=== PATIENT | male | born 1955 | race African-American/Black ===

== ENCOUNTER 2017-08-24 21:40 | Emergency (ER) | payer OTHER ==
[~2017-08-24] VITALS: Ht 170.2 cm; Wt 63.5 kg
[~2017-08-24 21:40] MED LIST: ATARAX25 MG ORAL; BUPROPION XL300 MG ORAL; IBUPROFEN600 MG ORAL; PRILOSEC10 MG ORAL; PROZAC20 MG ORAL; THORAZINE25 MG PO
[2017-08-24 22:19] VITALS: BP 113/78
[2017-08-24] MEDS ORDERED: IBUPROFEN600 MG ORAL (23:04)
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
[2017-08-24 23:10] VITALS: BP 113/78
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
== END 2017-08-24 23:10 | disposition home or self-care (01) ==
LOC: EMR 22:47
DX: M54.2 Cervicalgia (principal); M54.5 Low back pain; V43.52XA Car driver injured in collision with other type car in traffic accident, initial encounter; Y92.480 Sidewalk as the place of occurrence of the external cause
CPT/HCPCS: 72020; 99283

== ENCOUNTER 2017-10-08 16:40 | Emergency (ER) | payer OTHER ==
[~2017-10-08] VITALS: Ht 172.7 cm; Wt 63.5 kg
[2017-10-08 17:01] VITALS: BP 131/83
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
[2017-10-08] MEDS ORDERED: LIDOCAINE700 M1 TP (17:31)
[2017-10-08] MEDS ORDERED: TYLENOL EXTRA500 MG ORAL (17:31)
[2017-10-08 18:04] VITALS: BP 131/83
== END 2017-10-08 18:06 | disposition home or self-care (01) ==
LOC: EMR 17:29
DX: M54.5 Low back pain (principal)
CPT/HCPCS: 99284

== ENCOUNTER 2019-11-03 16:01 | Emergency (ER) | payer OTHER ==
[~2019-11-03] VITALS: Ht 170.2 cm; Wt 63.5 kg
[~2019-11-03 16:01] MED LIST changes: +LIDOCAINE700 M1 TP; +TYLENOL EXTRA500 MG ORAL
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
[2019-11-03 16:37] VITALS: BP 115/68
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
[2019-11-03] MEDS ORDERED: TYLENOL EXTRA500 MG ORAL (17:25)
[2019-11-03 18:00] VITALS: BP 118/73
--- NOTE | 2019-11-03 18:00 | NUR ---
ER DISCHARGE NOTE: Patient is cleared to be discharged per ERMD, pt is aox4, on room air, with stable vital signs. pt was given dc and prescription instructions, pt was able to verbalize understanding, pt id band removed. pt is able to ambulate with steady gait. pt took all belongings.
== END 2019-11-03 18:00 | disposition home or self-care (01) ==
LOC: EMR 16:45
DX: M79.601 Pain in right arm (principal); R20.0 Anesthesia of skin
CPT/HCPCS: 73060; Z7502; 99283

== ENCOUNTER 2019-12-08 19:12 | Emergency (ER) | payer OTHER ==
[~2019-12-08] VITALS: Ht 170.2 cm; Wt 63.5 kg
[2019-12-08 19:30] VITALS: BP 127/89
[2019-12-08] MEDS ORDERED: Acetaminophen 500mg (ES) tab ORAL ONE (19:45)
[2019-12-08] MEDS ORDERED: Methocarbamol 750mg tab ORAL ONE (19:45)
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
--- NOTE | 2019-12-08 20:17 | Diagnostic Imaging Report ---
EXAM: CT Cervical Spine Without Intravenous Contrast CLINICAL HISTORY: PAIN TECHNIQUE: Axial computed tomography images of the cervical spine without intravenous contrast. CTDI is 5 mGy and DLP is 102.8 mGy-cm. One or more of the following dose reduction techniques were used: automated exposure control, adjustment of the mA and/or kV according to patient size, use of iterative reconstruction technique. COMPARISON: No relevant prior studies available. FINDINGS: Vertebrae: No acute fracture or malalignment. Degenerative changes and mild reversal of the cervical lordosis. Schmorl's nodes. Discs/spinal canal/neural foramina: No acute process. Degenerative changes. Soft tissues: Unremarkable. IMPRESSION: No acute fracture or malalignment.
[2019-12-08] MEDS ORDERED: LIDODERM700 M1 TOPIC (20:28)
[2019-12-08] MEDS ORDERED: ROBAXIN-750750 MG PO (20:28)
[2019-12-08 20:30] VITALS: BP 127/89
== END 2019-12-08 20:30 | disposition home or self-care (01) ==
LOC: EMR 19:42
DX: S16.1XXA Strain of muscle, fascia and tendon at neck level, initial encounter (principal); V49.9XXA Car occupant (driver) (passenger) injured in unspecified traffic accident, initial encounter; Y92.410 Unspecified street and highway as the place of occurrence of the external cause
CPT/HCPCS: 72125; Z7502; 99284

== ENCOUNTER 2019-12-30 21:50 | Emergency (ER) | payer OTHER ==
[~2019-12-30] VITALS: Ht 170.2 cm; Wt 63.5 kg
[~2019-12-30 21:50] MED LIST changes: +LIDODERM700 M1 TOPIC; +ROBAXIN-750750 MG PO
[2019-12-30 22:05] VITALS: BP 156/97
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
[2019-12-30] MEDS ORDERED: HYDROcodone/Acetamin 5/325 tab ORAL ONE (22:30)
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
[2019-12-31] MEDS ORDERED: NORCO 5-325 TA1 EAC1 ORAL (00:03)
[2019-12-31] MEDS ORDERED: PREDNISONE20 MG ORAL (00:03)
[2019-12-31 00:10] VITALS: BP 148/95
== END 2019-12-31 00:10 | disposition home or self-care (01) ==
LOC: EMR 22:10
DX: S16.1XXA Strain of muscle, fascia and tendon at neck level, initial encounter (principal); S39.012A Strain of muscle, fascia and tendon of lower back, initial encounter; V43.52XA Car driver injured in collision with other type car in traffic accident, initial encounter; Y92.410 Unspecified street and highway as the place of occurrence of the external cause
CPT/HCPCS: 72020; 72040; 72125; 99284